=== PATIENT | female | born 1950 | race Caucasian/White ===

== ENCOUNTER 2018-08-10 18:33 | Emergency (ER) | payer OTHER ==
[2018-08-10 19:09] VITALS: BP 181/90
--- NOTE | 2018-08-10 19:49 | UC ---
Hand/Wrist HPI - HPI Summary HPI Summary: 68 y/o female presents to the urgent care c/o left 3rd finger w/ discrete abrasion s/p hitting her finger w/ a bowling ball and braking her silver ring at 1830pm today. Now unable to removed her ring. Ring broke upon the impact w / bowling ball. Pain is 1/10 w/o any swelling. pt able to move finger w/o any difficulty. Pt states she can't recall last Tetanus vaccine. Pt denies fever, numbness or tingling over finger of hand, SOB, chest pain, abdominal pain, N/V/ D. - History Of Current Complaint Chief Complaint: UCUpperExtremity Stated Complaint: LEFT HAND MIDDLE FINGER Time Seen by Provider: 08/10/18 19:46 Hx Obtained From: Patient ?: No - Menopausal Onset/Duration: Sudden Onset, Lasting Hours - 2hrs Severity Initially: Mild Severity Currently: Mild Pain Intensity: 1 Pain Scale Used: 0-10 Numeric Character Of Pain: Sharp Aggravating Factor(s): Movement, Other - unable to remove broken ring Alleviating Factor(s): Nothing Associated Signs And Symptoms: Positive: Negative, Other - discrete abrasion. Negative: Swelling, Redness, Fever Related History: Dominant Hand Right - Allergies/Home Medications Allergies/Adverse Reactions: Allergies Allergy/AdvReac Type Severity Reaction Status Date / Time No Known Allergies Allergy Verified 08/10/18 19:02 Home Medications: Home Medications Lisinopril TAB* [Prinivil TAB 10 MG*] 1 tab DAILY 08/10/18 [History Confirmed ] PMH/Surg Hx/FS Hx/Imm Hx Previously Healthy: Yes Cardiovascular History: Hypertension - Surgical History Surgical History: Yes Surgery Procedure, Year, and Place: Hysterectomy 1987 - Family History Known Family History: Positive: Hypertension - Social History Occupation: Retired Lives: With Family Alcohol Use: Occasionally Substance Use Type: None Smoking Status (MU): Never Smoked Tobacco - Immunization History Most Recent Tetanus Shot: Unsure Review of Systems Constitutional: Negative Skin: Other - discrete abrasion over the left middle finger s/p broken ring Eyes: Negative ENT: Negative Respiratory: Negative Cardiovascular: Negative Gastrointestinal: Negative Genitourinary: Negative Motor: Negative Neurovascular: Negative Musculoskeletal: Negative Neurological: Negative Psychological: Negative Is Patient Immunocompromised?: No All Other Systems Reviewed And Are Negative: Yes Physical Exam - Summary Physical Exam Summary: Vital Signs Reviewed: Yes General: well developed, well nourished female sitting in the examining table w/ o any apparent distress Eye Exam: Normal Eyes: Positive: Conjunctiva Clear - PERRLA, EOMI, fundi grossly normal ENT: Positive: Normal ENT inspection, Hearing grossly normal, Pharynx normal, TMs normal Neck: Positive: Supple, Nontender, No Lymphadenopathy Respiratory: Positive: Chest non-tender, Lungs clear, Normal breath sounds, No respiratory distress Cardiovascular: Positive: RRR, No Murmur, Pulses Normal, Brisk Capillary Refill Abdomen Description: Positive: Nontender, No Organomegaly, Soft. Negative: CVA Tenderness (R), CVA Tenderness (L) Bowel Sounds: Positive: Present Musculoskeletal: Positive: Strength Intact, ROM Intact, No Edema Neurological: Positive: Alert, Muscle Tone Normal Psychological Exam: Normal Skin: Positive: Positive a broken silver ring on left middle finger. Ring broken only on 1 side, but making pressure on the skin w/ a discrete abrasion about 0.2cm in size. mild tenderness to palpation, no ecchymosis around finger. FROM of left 3rd phalanx, sensation intact, capillary refill brisk, and pulses WNL. Triage Information Reviewed: Yes Vital Signs: Initial Vital Signs Temp 98.5 F 08/10/18 19:03 Pulse 92 08/10/18 19:03 Resp 16 08/10/18 19:03 BP 181/90 08/10/18 19:03 Pulse Ox 100 08/10/18 19:03 Hand/Wrist Course/Dx - Course Course Of Treatment: 68 y/o female presents to the urgent care c/o left 3rd finger w/ discrete abrasion s/p hitting her finger w/ a bowling ball and braking her silver ring at 1830pm today. Now unable to removed her ring. Ring broke upon the impact w/ bowling ball. Pain is 1/10 w/o any swelling. pt able to move finger w/o any difficulty. Pt states she can't recall last Tetanus vaccine. Pt denies fever, numbness or tingling over finger of hand, SOB, chest pain, abdominal pain, N/V/D. Hx obtained. Positive a broken silver ring on left middle finger. Ring broken only on 1 side, but making pressure on the skin w/ a discrete abrasion about 0.2cm in size. Pt's ring removed w/ 2 kellies. Pt tolerated well procedure w/o any advserse effect. Wound cleaned w/ sterile water and bacitracin oint applied. Pt declined Tdap vaccined. Pt's BP is elevated today advised to decrease salt in diet, monitor BP and f/u with PCP for further management. D/C instructions explained. Pt understood and agreed. - Differential Dx/Diagnosis Differential Diagnosis/HQI/PQRI: Abrasion, Contusion, Fracture, Sprain, Strain, Tendonitis, Other - ring removal Provider Diagnoses: 1- Ring removal from left 3rd phalanx s/p injury. 2- Left 3rd phalanx abrasion s/p injury. 3- Uncontrolled HTN Discharge - Sign-Out/Discharge Documenting (check all that apply): Patient Departure - D/C home All imaging exams completed and their final reports reviewed: No Studies - Discharge Plan Condition: Stable Disposition: HOME Patient Education Materials: Abrasion (ED), Low-Sodium Diet (ED) Referrals: Meena Dunaway MD [Primary Care Provider] - If Needed Additional Instructions: 1-Please apply Bacitracin oint over abrsion to avoid infection medication as directed. 2-Take ibuprofen PO q6-8hrs after meals if you develop pain. 3-If symptoms do not improve or worsen please f/u with your PCP or return to the urgent care for further evaluation and treatment. 4-Your BP is elevated today. please decrease salt in your diet, monitor BP and if it continues to be elevated please f/u with your PCP for further management - Billing Disposition and Condition Condition: STABLE Disposition: Home
[2018-08-10] MEDS ORDERED: Tetan/Diph/Pertus SYR(Tdap)* 0.5 ML SYR(BOOSTRIX) use SYR IM ONE (19:56)
== END 2018-08-10 20:21 | disposition home or self-care (01) ==
LOC: UCCORT 18:33
DX: S60.413A Abrasion of left middle finger, initial encounter (principal); I10 Essential (primary) hypertension; W23.0XXA Caught, crushed, jammed, or pinched between moving objects, initial encounter; Y92.9 Unspecified place or not applicable
CPT/HCPCS: 90471; 90715; 99211; G0463

== ENCOUNTER 2018-11-08 13:16 | Emergency (ER) | payer OTHER ==
[2018-11-08 13:52] VITALS: BP 155/67
--- NOTE | 2018-11-08 14:24 | UC ---
Respiratory Complaint HPI - HPI Summary HPI Summary: cough x 4 days cough is dry , non productive mild cold symptoms with sore throat, nasal congestion no fever, no wheezing, no chest pain or sob - History of Current Complaint Chief Complaint: UCRespiratory Stated Complaint: SORE THROAT COUGH Time Seen by Provider: 11/08/18 13:59 Hx Obtained From: Patient Onset/Duration: Gradual Onset, Lasting Days - 4, Still Present Timing: Constant Severity Initially: Moderate Severity Currently: Moderate Pain Intensity: 2 Pain Scale Used: 0-10 Numeric Character: Cough: Nonproductive Aggravating Factors: Exertion, Deep Breaths Alleviating Factors: Nothing Associated Signs And Symptoms: Positive: URI, Nasal Congestion. Negative: Dyspnea, Fever, Chills, Wheezing, Hemoptysis, Dizziness, Calf Pain, Calf Swelling, Edema - Allergies/Home Medications Allergies/Adverse Reactions: Allergies Allergy/AdvReac Type Severity Reaction Status Date / Time No Known Allergies Allergy Verified 11/08/18 13:47 Home Medications: Home Medications Dm/PE/Acetaminophen/Chlorphenr [[place] Plus Severe] 1 tab PO BID PRN 11/08 [History Confirmed 11/08/18] Guaifenesin/Dextromethorphan [Robitussin Cough & Chest 20-400 mg/20Ml] 1 liq PO Q4H PRN 11/08/18 [History Confirmed 11/08/18] PMH/Surg Hx/FS Hx/Imm Hx Respiratory History: Asthma - Surgical History Surgical History: Yes Surgery Procedure, Year, and Place: Hysterectomy 1987 - Family History Known Family History: Positive: Hypertension - Social History Alcohol Use: Daily Alcohol Amount: wine Substance Use Type: None Smoking Status (MU): Never Smoked Tobacco - Immunization History Most Recent Tetanus Shot: Unsure Review of Systems All Other Systems Reviewed And Are Negative: Yes Constitutional: Positive: Negative Skin: Positive: Negative Eyes: Positive: Negative ENT: Positive: Sore Throat, Nasal Discharge Respiratory: Positive: Cough Cardiovascular: Positive: Negative Is Patient Immunocompromised?: No Physical Exam Triage Information Reviewed: Yes Appearance: Well-Appearing, No Pain Distress, Well-Nourished Vital Signs: Initial Vital Signs Temp 98.2 F 11/08/18 13:48 Pulse 82 11/08/18 13:48 Resp 18 11/08/18 13:48 BP 155/67 11/08/18 13:48 Pulse Ox 97 01/17/19 13:48 Vital Signs Reviewed: Yes Eye Exam: Normal Eyes: Positive: Conjunctiva Clear ENT: Positive: Normal ENT inspection, Hearing grossly normal, Pharyngeal erythema, Nasal congestion Neck: Positive: Supple, Nontender, No Lymphadenopathy Respiratory: Positive: Chest non-tender, Lungs clear, Normal breath sounds Cardiovascular: Positive: RRR, No Murmur, Pulses Normal Skin Exam: Normal UC Diagnostic Evaluation - Laboratory O2 Sat by Pulse Oximetry: 97 Respiratory Course/Dx - Differential Dx/Diagnosis Provider Diagnosis: Viral bronchitis Discharge - Sign-Out/Discharge Documenting (check all that apply): Patient Departure All imaging exams completed and their final reports reviewed: No Studies - Discharge Plan Condition: Stable Disposition: HOME Prescriptions: Benzonatate CAP* [Tessalon 100 MG CAP*] 100 mg PO TID #15 cap Patient Education Materials: Acute Bronchitis (ED) Referrals: Meena Dunaway MD [Primary Care Provider] - 7 Days Additional Instructions: viral bronchitis , no need for antibiotics cont. with rest, increase fluid, follow up with your pcp in one week sooner if having fever or getting worse - Billing Disposition and Condition Condition: STABLE Disposition: Home
== END 2018-11-08 14:10 | disposition home or self-care (01) ==
LOC: UCCORT 13:16
DX: J20.8 Acute bronchitis due to other specified organisms (principal)
CPT/HCPCS: 99212; G0463